=== PATIENT | male | born 1985 | race Caucasian/White ===

== ENCOUNTER 2017-05-07 15:14 | Emergency (ER) | payer MEDICAID ==
[2017-05-07 15:35] VITALS: O2SAT 98
[2017-05-07] MEDS ORDERED: KETOROLAC 15 MG/1 ML SDV IVP ONE (15:47)
[2017-05-07] MEDS ORDERED: DEXAMETHASONE 4 MG/ML VIAL IVP ONE (15:47)
[2017-05-07] MEDS ORDERED: DIAZEPAM 10 MG/2 ML SYR IVP ONE (15:47)
--- NOTE | 2017-05-07 15:47 | EDPHY ---
H & P Stated Complaint: L upper leg/hip pain since January;neg evals at [facility];no recent injury Source: Patient Exam Limitations: No limitations - Personal History Current Tetanus Diphtheria and Acellular Pertussis (TDAP): Yes - Medical/Surgical History Other PMH: chronic L leg/hip pain - Social History Smoking Status: Current every day smoker Time Seen by Provider: 05/07/17 15:46 HPI/ROS: HPI: This is a 31-year-old male who presents with Chief Complaint: Left hip and leg pain Location: Left hip and leg Quality: Pain Duration: Since January Signs and Symptoms: No bleeding, no radiation, no numbness, no weakness, no tingling, no incontinence, + decreased range of motion Timing: Worse than last 2 days Severity: Moderate to severe Context: Seen at [facility] on January 27 with negative for DVT left lower extremity ultrasound. Seen 2 weeks ago at [facility] again with hip x-ray that showed no acute fracture, dislocation, degenerative changes. He reports that he has completed a Medrol Dosepak, Percocet, and Robaxin in the past. He has not followed up with Orthopedics as directed. He denies any injury. He is ambulatory with the aid of a cane. Modifying Factors: see medications above Comment: ROS: Constitutional: No fever, no chills, no weight loss Eyes: No blurred vision Respiratory: No shortness of breath, no cough Cardiovascular: No chest pain Gastrointestinal: No nausea, no vomiting no diarrhea Genitourinary: No dysuria Extremities: No myalgias Neurologic: No weakness, no numbness Skin: No rashes Hematologic: No bruising, no bleeding MEDICAL/SURGICAL/SOCIAL HISTORY: Generally healthy. Left hand tendon repair surgery. (Gabbie Moore) - Physical Exam Exam: CONSTITUTIONAL: Extremely well-appearing overweight white male, awake and alert , no obvious distress HEENT: Atraumatic and normocephalic, PERRL, EOMI. Tympanic membranes clear. Oropharynx clear, no exudate and moist pink mucosa. Airway patent. No lymphadenopathy. NECK: supple, no midline tenderness, flexion 45 degrees, extension 45 degrees, right and left lateral flexion 45 degrees. No meningismus. Cardiovascular: Normal S1/S2, regular rate, regular rhythm, without murmur rub or gallop. PULMONARY/CHEST: Symmetrical and nontender. Clear to auscultation bilaterally Good air movement. No accessory muscle usage. ABDOMEN: Soft, nondistended, nontender, no rebound, no guarding, no peritoneal signs, no masses or organomegaly. No CVAT. PELVIC: no pain with rocking; bilateral hips flexion 125 degrees, extension 30 degrees, with no pain internal rotation and no pain external rotation. Mild left greater trochanteric tenderness to palpation. EXTREMITIES: 2/2 pulses, no deformities, no clubbing, no cyanosis or edema. Leg lengths equal. Left knee no effusion/no joint line tenderness/flexion to 120/extension 180/stable valgus and varus stress. No calf tenderness. Achilles tendon intact. BACK: No midline tenderness, no paraspinous spasm, deep tendon reflexes 2/2, moderate pain with straight leg raise NEUROLOGICAL: no focal neuro deficits. GCS 15. SKIN: Warm and dry, no erythema. no rash. Good capillary refill. (Gabbie Moore) Constitutional: Initial Vital Signs Temperature (C) 37.2 C 05/07/17 15:20 Heart Rate 100 05/07/17 15:20 Respiratory Rate 16 05/07/17 15:20 Blood Pressure 148/101 H 05/07/17 15:20 O2 Sat (%) 98 05/07/17 15:20 O2 Delivery Mode Room Air Allergies/Adverse Reactions: No Known Allergies Allergy (Unverified 05/07/17 15:34) Home Medications: Medication Instructions Recorded Lidocaine 5% [Lidoderm 5% Patch 1 ea TD DAILY #12 patch 05/07/17 (*)] Metaxalone [Skelaxin 800 mg (*)] 800 mg PO TID PRN #12 tab 05/07/17 Tramadol HCl/Acetaminophen 1 each PO Q4 PRN #12 tablet 05/07/17 [Ultracet 37.5/325 mg] Medical Decision Making - Diagnostics Imaging Results: Imaging Impressions Knee X-Ray 05/07/17 15:47 Impression: Negative left knee radiographs. Lumbar Spine X-Ray 05/07/17 15:47 Impression: 1. No lumbar compression fractures, spondylolisthesis, or significant degenerative disk disease. 2. Consider MRI lumbar spine if there is continued left leg radiculopathy persists. ED Course/Re-evaluation: Lumbosacral x-rays, left knee x-rays ordered Given IV Decadron, IV Valium, IV Toradol with moderate relief No indication to repeat ultrasound as negative ultrasound recently No signs of neurovascular compromise/tenting of skin/compartment syndrome/ extremities and joints examined above and below area of concern and are neurovascularly intact. (Gabbie Moore) The patient was evaluated and managed by the physician case management assistant. I have reviewed this chart and I agree with the findings and plan of care as documented , as indicated by my signature. I am the secondary supervising physician. ( Elis Mata) Differential Diagnosis: Back pain including but not limited to muscular pain, herniated disc, spine fracture, intra-abdominal causes and urinary tract infection. (Gabbie Moore) - Data Points Medications Given: Discontinued Medications Dexamethasone (Decadron Injection) 8 mg IVP EDNOW ONE Stop: 05/07/17 15:48 Last Admin: 05/07/17 16:18 Dose: 8 mg Diazepam (Valium Injection) 5 mg IVP EDNOW ONE Stop: 05/07/17 15:48 Last Admin: 05/07/17 16:18 Dose: 5 mg Ketorolac Tromethamine (Toradol) 15 mg IVP EDNOW ONE Stop: 05/07/17 15:48 Last Admin: 05/07/17 16:18 Dose: 15 mg Departure - Departure Disposition: Home, Routine, Self-Care Clinical Impression: Lumbar back pain with radiculopathy affecting left lower extremity Hip bursitis, left Qualifiers: Hip bursitis location: trochanteric bursitis Qualified Code(s): M70.62 - Trochanteric bursitis, left hip Condition: Good Instructions: Lumbar Radiculopathy (ED), Chronic Back Pain (ED) Additional Instructions: Rest the affected extremity as much as possible. Use a cane or crutches to aid in ambulation; advance weight-bearing as tolerated. [facility] to [facility] primary care and orthopedics if symptoms do not improve in the next 7-10 days. Referrals: [facility],. [Clinic] - As per Instructions Manuel Masters MD [Medical Doctor] - As per Instructions Prescriptions: Lidocaine 5% [Lidoderm 5% Patch (*)] 1 ea TD DAILY #12 patch Metaxalone [Skelaxin 800 mg (*)] 800 mg PO TID PRN #12 tab PRN Reason: Spasms Tramadol HCl/Acetaminophen [Ultracet 37.5/325 mg] 1 each PO Q4 PRN #12 tablet PRN Reason: Pain, Moderate
[2017-05-07 17:10] VITALS: BP 144/83; PULSE 98; RESP 18; TEMP 98.1
== END 2017-05-07 17:10 | disposition home or self-care (01) ==
DX: M70.62 Trochanteric bursitis, left hip (principal); M54.16 Radiculopathy, lumbar region; F17.200 Nicotine dependence, unspecified, uncomplicated
CPT/HCPCS: 96374; J1100; J1885